=== PATIENT | female | born 1970 | race Hispanic/Latino ===

== ENCOUNTER 2019-02-19 13:59 | Outpatient (CLI) | payer BC ==
--- NOTE | 2019-02-19 15:43 | ULT ---
BILATERAL RENAL ULTRASOUND: 02/19/19 HISTORY: Hematuria, pelvic pain. FINDINGS: The right kidney measures 11.1 cm in length and the left kidney measures 12.1 cm in length. No focal mass or hydronephrosis is seen on either side. The urinary bladder is normal with prevoid volume of 904 mL and a postvoid residual of 30 mL. Cortica l echogenicity and thickness is normal. IMPRESSION: Normal exam. POS: OFF
--- NOTE | 2019-02-19 15:46 | ULT ---
TRANSABDOMINAL AND TRANSVAGINAL PELVIC ULTRASOUND WITH RAYMUNDO SCALE, COLOR FLOW AND SPECTRAL DOPPLER IM AGIN02/19/19 HISTORY: Pelvic pain. FINDINGS: The uterus measures 13.4 x 6.7 x 5.5 cm without focal mass or endometrial thickening. The endometrium measures 1 cm in thickness. The right ovary measures 2.3 x 3.1 x 1.3 cm. There is flow demonstrated to the right ovary. No adnexa l mass is seen on either side. The left ovary is not visualized. Flow is demonstrated to the right o vary. No free fluid is seen in the cul-de-sac. A Nabothian cyst is noted in the cervix. IMPRESSION: Nonvisualization of the left ovary, otherwise unremarkable exam. POS: OFF
== END 2019-02-19 14:00 | disposition home or self-care (01) ==
LOC: SCSULT 13:59
PROVIDERS: ATTEND Nurse Practitioner Adult Health
DX: R10.2 Pelvic and perineal pain (principal); R31.9 Hematuria, unspecified
CPT/HCPCS: 76770; 76856